=== PATIENT | female | born 1955 | race Caucasian/White ===

== ENCOUNTER 2022-07-10 15:12 | Inpatient (IN) | payer MEDICAID, OTHER ==
[~2022-07-10] VITALS: Ht 165.1 cm; Wt 63.4 kg
[2022-07-10 16:13] LABS: Hemoglobin 8.6 g/dL (12.2-16.2); Mean Corpuscular Hgb Conc. 29.7 g/dL (32.0-36.0)
[2022-07-10 16:16] LABS: Mean Corpuscular Hemoglobin 21.6 pg (28.0-32.0); Mean Corpuscular Volume 72.7 fL (80.0-100.0); Red Blood Cells 3.99 10^6/uL (4.0-5.20)
[2022-07-10 16:41] LABS: Albumin 2.8 g/dL (3.4-5.0); Calcium 8.3 mg/dL (8.5-10.1); Potassium 3.8 mmol/L (3.5-5.1)
[2022-07-10 16:44] LABS: BUN/Creatinine Ratio 34.8; Bilirubin, Total 0.4 mg/dL (0.2-1.0); Red Cell Distribution Width 20.4 % (11.8-14.3); Total Protein 8.2 g/dL (6.4-8.2)
[2022-07-10 16:45] LABS: Band Neutrophils % (manual) 0; Basophils % (manual) 0 (0.0-2.0); Blast Cells 0; Eosinophils % (manual) 0 (0-7); Metamyelocytes % 0; Myelocytes % 0; Promyelocytes % 0; Reactive Lymphocytes 0
[2022-07-10] MEDS ORDERED: VANCOMYCIN 1GM/250ML 250 ML IV ONE (17:15)
[2022-07-10] MEDS ORDERED: MORPHINE SULFATE 4 MG/ML SYR/VIAL IV ONE (17:15)
[2022-07-10] MEDS ORDERED: CEFEPIME 1GM/ 50ML 50 ML IV ONE (17:15)
[2022-07-10 17:31] LABS: Lymphocytes % (manual) 18 (10.0-50.0)
[2022-07-10 17:32] LABS: Monocytes % (manual) 10 (0-12)
[2022-07-10] MEDS ORDERED: DOCUSATE SOD 100 MG CAP PO PRN (19:15)
[2022-07-11] MEDS: ONDANSETRON HCL 4 MG/2 ML VIAL IV PRN ×2 (02:05→03:28)
[2022-07-11] MEDS: CLINDAMYCIN 600MG IV 50 ML IV SCH ×2 (02:05→06:31)
[2022-07-11] MEDS: HYDROmorphone HCL 2 MG/ML VL/or syr IV PRN ×2 (03:29→11:03)
[2022-07-11 06:06] LABS: Basophils # (auto) 0 10 ^3/uL (0-0.2); Eosinophils # (auto) 0.1 10 ^3/uL (0-0.8); Hemoglobin 7.7 g/dL (12.2-16.2); Monocytes # (auto) 0.9 10 ^3/uL (0-1.3); Nucleated Red Blood Cells % 0.1 %
[2022-07-11 06:08] LABS: Basophils % (auto) 0.5 % (0.0-2.0); Eosinophils % (auto) 1.7 % (0.0-7.0); Hematocrit 26.5 % (36.0-46.0); Lymphocytes # (auto) 1.6 10 ^3/uL (0.4-5.4); Lymphocytes % (auto) 22.2 % (10.0-50.0); Mean Corpuscular Hemoglobin 21.1 pg (28.0-32.0); Mean Corpuscular Hgb Conc. 29.1 g/dL (32.0-36.0); Mean Corpuscular Volume 72.5 fL (80.0-100.0); Monocytes % (auto) 12.5 % (0.0-12.0); Neutrophils # (auto) 4.5 10 ^3/uL (1.6-8.6); Neutrophils % (auto) 63.1 % (37.0-80.0); Red Blood Cells 3.65 10^6/uL (4.0-5.20); White Blood Cell 7.1 10^3/uL (4.4-10.8)
[2022-07-11 06:10] LABS: Red Cell Distribution Width 20.3 % (11.8-14.3)
[2022-07-11 06:25] LABS: Potassium 3.7 mmol/L (3.5-5.1)
[2022-07-11 06:29] LABS: Albumin 2.4 g/dL (3.4-5.0); BUN/Creatinine Ratio 24.1; Calcium 8.3 mg/dL (8.5-10.1)
[2022-07-11 06:32] LABS: Bilirubin, Total 0.4 mg/dL (0.2-1.0); Total Protein 7.5 g/dL (6.4-8.2)
[2022-07-11] MEDS ORDERED: ENOXAPARIN SOD 40 MG/0.4 ML SYRINGE SC SCH (10:00)
[2022-07-11] MEDS ORDERED: levoFLOXacin 500MG 100 ML IV SCH (10:00)
[2022-07-11] MEDS ORDERED: METHADONE HCL 10 MG TAB PO ONE (11:30)
[2022-07-11] MEDS ORDERED: VANCOMYCIN PER PHARMACY 0 MG IV SCH (11:30)
[2022-07-11] MEDS ORDERED: HYDROmorphone HCL 2 MG/ML VL/or syr IV PRN (11:30)
[2022-07-11] MEDS ORDERED: INFLUENZA QUAD 2022-2023 0.5 ML SYRG IM ONE (12:30)
[2022-07-11] MEDS ORDERED: PNEUMOCOCCAL VACC POLYS 25 MCG/0.5 ML VIAL IM ONE (12:30)
[2022-07-11 13:00] VITALS: BP 104/39
[2022-07-11] MEDS ORDERED: METH10T PO (14:39)
[2022-07-11 15:04] LABS: Urine Bacteria NONE SEEN /hpf (None Seen); Urine Blood Negative /uL (Negative); Urine Specific Gravity 1.023 (1.001-1.035); Urine WBC 1 /hpf (0 - 5)
[2022-07-11 15:18] LABS: Amphetamine Screen, Urine POSITIVE (NEGATIVE); Barbiturate Scree,Urine NEGATIVE (NEGATIVE); Benzodiazephine Screen, Urine NEGATIVE (NEGATIVE); Cannabinoid Screen, Urine NEGATIVE (NEGATIVE); Cocaine Screen, Urine NEGATIVE (NEGATIVE); Phencyclidine Screen, Urine NEGATIVE (NEGATIVE)
[2022-07-11 15:25] LABS: Opiate Scree,Urine POSITIVE (NEGATIVE)
[2022-07-11] MEDS: CEFEPIME 2 GM in SODIUM CHL 0.9% 50 ML IV SCH ×3 (16:28→23:58)
[2022-07-11] MEDS: VANCOMYCIN 1GM/250ML 250 ML IV SCH (16:29)
[2022-07-11 17:00] VITALS: BP 114/58
[2022-07-11 22:00] VITALS: BP 108/65
[2022-07-12] MEDS: VANCOMYCIN 1GM/250ML 250 ML IV SCH ×2 (04:17→17:19)
[2022-07-12 05:00] VITALS: BP 105/46
[2022-07-12 05:18] LABS: Basophils # (auto) 0 10 ^3/uL (0-0.2); Basophils % (auto) 0.4 % (0.0-2.0); Eosinophils # (auto) 0.1 10 ^3/uL (0-0.8); Hematocrit 27.9 % (36.0-46.0); Hemoglobin 8.1 g/dL (12.2-16.2); Lymphocytes # (auto) 1.4 10 ^3/uL (0.4-5.4); Mean Corpuscular Hemoglobin 21.4 pg (28.0-32.0); Mean Corpuscular Volume 73.6 fL (80.0-100.0); Monocytes # (auto) 0.8 10 ^3/uL (0-1.3); Monocytes % (auto) 11.6 % (0.0-12.0); Neutrophils # (auto) 4.8 10 ^3/uL (1.6-8.6); Red Blood Cells 3.79 10^6/uL (4.0-5.20); White Blood Cell 7.2 10^3/uL (4.4-10.8)
[2022-07-12 05:21] LABS: Red Cell Distribution Width 20.2 % (11.8-14.3)
[2022-07-12 05:24] LABS: INR 1.11 (0.9-1.15); Partial Thromboplastin Time 28.6 sec (24.6-33.4)
[2022-07-12 05:29] LABS: % Iron Saturation 3.7 % (15-50); BUN/Creatinine Ratio 18.5; Potassium 3.8 mmol/L (3.5-5.1)
[2022-07-12] MEDS: CEFEPIME 2 GM in SODIUM CHL 0.9% 50 ML IV SCH ×2 (06:52→14:00)
[2022-07-12 08:00] VITALS: BP 119/62
[2022-07-12] MEDS: METHADONE HCL 10 MG TAB PO SCH (09:37)
[2022-07-12] MEDS ORDERED: FERROUS SULFATE 325mg EC TAB PO ONE (11:15)
[2022-07-12] MEDS ORDERED: MORPHINE SULFATE INJ 2 MG/ml SYRG IV PRN (11:15)
[2022-07-12 12:00] VITALS: BP 107/52
[2022-07-12 17:00] VITALS: BP 111/49
[2022-07-12 22:00] VITALS: BP 125/64
[2022-07-12] MEDS: FERROUS SULFATE 325mg EC TAB PO SCH (22:46)
[2022-07-13] MEDS: VANCOMYCIN 1GM/250ML 250 ML IV SCH ×2 (04:23→17:32)
[2022-07-13] MEDS ORDERED: amLODIPine BESYLATE 5 MG TAB PO ONE (04:30)
[2022-07-13 05:00] VITALS: BP 142/56
[2022-07-13 07:36] LABS: Basophils # (auto) 0 10 ^3/uL (0-0.2); Basophils % (auto) 0.6 % (0.0-2.0); Eosinophils # (auto) 0.2 10 ^3/uL (0-0.8); Eosinophils % (auto) 3.7 % (0.0-7.0); Hematocrit 28.2 % (36.0-46.0); Hemoglobin 8.2 g/dL (12.2-16.2); Lymphocytes # (auto) 1.4 10 ^3/uL (0.4-5.4); Lymphocytes % (auto) 23.5 % (10.0-50.0); Mean Corpuscular Hemoglobin 21.4 pg (28.0-32.0); Mean Corpuscular Hgb Conc. 29.1 g/dL (32.0-36.0); Mean Corpuscular Volume 73.7 fL (80.0-100.0); Monocytes # (auto) 0.7 10 ^3/uL (0-1.3); Monocytes % (auto) 11.6 % (0.0-12.0); Neutrophils # (auto) 3.6 10 ^3/uL (1.6-8.6); Neutrophils % (auto) 60.6 % (37.0-80.0); Nucleated Red Blood Cells % 0.1 %; Red Blood Cells 3.83 10^6/uL (4.0-5.20); Red Cell Distribution Width 19.9 % (11.8-14.3); White Blood Cell 5.9 10^3/uL (4.4-10.8)
[2022-07-13 07:58] LABS: % Iron Saturation 26.7 % (15-50)
[2022-07-13] MEDS: CEFEPIME 2 GM in SODIUM CHL 0.9% 50 ML IV SCH ×3 (08:11→22:05)
[2022-07-13] MEDS: FERROUS SULFATE 325mg EC TAB PO SCH ×2 (08:11→18:04)
[2022-07-13 09:00] VITALS: BP 115/43
[2022-07-13] MEDS: METHADONE HCL 10 MG TAB PO SCH (09:33)
[2022-07-13] MEDS ORDERED: amLODIPine BESYLATE 5 MG TAB PO SCH (10:00)
[2022-07-13 13:00] VITALS: BP 108/34
[2022-07-13 17:21] VITALS: BP 109/41
[2022-07-13 22:00] VITALS: BP 128/56
[2022-07-14] MEDS: VANCOMYCIN 1GM/250ML 250 ML IV SCH ×2 (04:03→16:01)
[2022-07-14 05:00] VITALS: BP 117/51
[2022-07-14] MEDS: CEFEPIME 2 GM in SODIUM CHL 0.9% 50 ML IV SCH ×3 (06:36→21:38)
[2022-07-14 07:19] LABS: Potassium 4.1 mmol/L (3.5-5.1)
[2022-07-14 07:34] LABS: BUN/Creatinine Ratio 18.4; Bilirubin, Total 0.4 mg/dL (0.2-1.0); Total Protein 7.1 g/dL (6.4-8.2)
[2022-07-14] MEDS: FERROUS SULFATE 325mg EC TAB PO SCH ×2 (08:24→17:33)
[2022-07-14] MEDS: METHADONE HCL 10 MG TAB PO SCH (08:25)
[2022-07-14 09:00] VITALS: BP 119/48
[2022-07-14 09:37] LABS: Basophils # (auto) 0 10 ^3/uL (0-0.2); Basophils % (auto) 0.4 % (0.0-2.0); Eosinophils # (auto) 0.2 10 ^3/uL (0-0.8); Eosinophils % (auto) 2.6 % (0.0-7.0); Hematocrit 29.2 % (36.0-46.0); Hemoglobin 8.4 g/dL (12.2-16.2); Lymphocytes # (auto) 1.3 10 ^3/uL (0.4-5.4); Lymphocytes % (auto) 20.9 % (10.0-50.0); Mean Corpuscular Hemoglobin 20.9 pg (28.0-32.0); Mean Corpuscular Hgb Conc. 28.9 g/dL (32.0-36.0); Mean Corpuscular Volume 72.5 fL (80.0-100.0); Monocytes # (auto) 0.5 10 ^3/uL (0-1.3); Monocytes % (auto) 8.6 % (0.0-12.0); Neutrophils # (auto) 4.1 10 ^3/uL (1.6-8.6); Neutrophils % (auto) 67.5 % (37.0-80.0); Nucleated Red Blood Cells % 0.1 %; Red Blood Cells 4.03 10^6/uL (4.0-5.20); Red Cell Distribution Width 20.3 % (11.8-14.3); White Blood Cell 6.1 10^3/uL (4.4-10.8)
[2022-07-14] MEDS ORDERED: ALPRAZolam 0.5 MG TAB PO PRN (11:00)
[2022-07-14 13:00] VITALS: BP 117/41
[2022-07-14 17:00] VITALS: BP 107/30
[2022-07-14] MEDS: HYDROcodone-ACET 5/325MG TAB PO PRN (20:18)
[2022-07-14 22:00] VITALS: BP 106/38
[2022-07-15] MEDS: VANCOMYCIN 1GM/250ML 250 ML IV SCH (04:02)
[2022-07-15 04:57] VITALS: BP 112/44
[2022-07-15 05:37] LABS: Basophils # (auto) 0 10 ^3/uL (0-0.2); Basophils % (auto) 0.7 % (0.0-2.0); Eosinophils # (auto) 0.4 10 ^3/uL (0-0.8); Eosinophils % (auto) 6.2 % (0.0-7.0); Hematocrit 28.2 % (36.0-46.0); Hemoglobin 8.1 g/dL (12.2-16.2); Lymphocytes # (auto) 2.2 10 ^3/uL (0.4-5.4); Lymphocytes % (auto) 32.7 % (10.0-50.0); Mean Corpuscular Hemoglobin 21.2 pg (28.0-32.0); Mean Corpuscular Hgb Conc. 28.8 g/dL (32.0-36.0); Mean Corpuscular Volume 73.5 fL (80.0-100.0); Monocytes # (auto) 0.9 10 ^3/uL (0-1.3); Neutrophils # (auto) 3.1 10 ^3/uL (1.6-8.6); Neutrophils % (auto) 46.4 % (37.0-80.0); Nucleated Red Blood Cells % 0.2 %; Red Blood Cells 3.83 10^6/uL (4.0-5.20); Red Cell Distribution Width 20.3 % (11.8-14.3); White Blood Cell 6.6 10^3/uL (4.4-10.8)
[2022-07-15 05:42] LABS: Albumin 1.9 g/dL (3.4-5.0); BUN/Creatinine Ratio 17.5; Calcium 8.2 mg/dL (8.5-10.1)
[2022-07-15 05:45] LABS: Bilirubin, Total 0.3 mg/dL (0.2-1.0); Total Protein 6.9 g/dL (6.4-8.2)
[2022-07-15] MEDS: CEFEPIME 2 GM in SODIUM CHL 0.9% 50 ML IV SCH (05:48)
[2022-07-15] MEDS: HYDROcodone-ACET 5/325MG TAB PO PRN ×2 (06:52→11:50)
[2022-07-15] MEDS: METHADONE HCL 10 MG TAB PO SCH (08:26)
[2022-07-15] MEDS: FERROUS SULFATE 325mg EC TAB PO SCH (08:26)
[2022-07-15 09:00] VITALS: BP 109/47
[2022-07-15] MEDS ORDERED: HYDR-4902 PO ×2 (10:54→11:40)
[2022-07-15] MEDS ORDERED: BACDST PO (11:03)
[2022-07-15] MEDS ORDERED: CEPH-510 PO (11:03)
[2022-07-15 11:51] VITALS: BP 109/47
[2022-07-15 13:00] VITALS: BP 110/50
[2022-07-15] MEDS ORDERED: cefTAZidime 2GM/NS 50 ML IV SCH (14:00)
== END 2022-07-15 14:30 | disposition home health service (06) | DRG 380 ==
LOC: ER 15:12 → OVERFLOW 19:23 → CENTRAL 07-11 08:00
PROVIDERS: ADMIT Nurse Practitioner Family; ATTEND Internal Medicine
DX: L97.919 Non-pressure chronic ulcer of unspecified part of right lower leg with unspecified severity (principal); U07.1 COVID-19; E43 Unspecified severe protein-calorie malnutrition; S81.801A Unspecified open wound, right lower leg, initial encounter; F11.10 Opioid abuse, uncomplicated; D50.9 Iron deficiency anemia, unspecified; L03.115 Cellulitis of right lower limb; B96.20 Unspecified Escherichia coli [E. coli] as the cause of diseases classified elsewhere; F19.10 Other psychoactive substance abuse, uncomplicated; I73.9 Peripheral vascular disease, unspecified; L97.929 Non-pressure chronic ulcer of unspecified part of left lower leg with unspecified severity; B95.62 Methicillin resistant Staphylococcus aureus infection as the cause of diseases classified elsewhere; G89.29 Other chronic pain; S81.802A Unspecified open wound, left lower leg, initial encounter; X58.XXXA Exposure to other specified factors, initial encounter; Y93.89 Activity, other specified; Z68.1 Body mass index [BMI] 19.9 or less, adult; Z88.0 Allergy status to penicillin; Y92.89 Other specified places as the place of occurrence of the external cause; Y99.8 Other external cause status
CPT/HCPCS: 36415; 73590; 80048; 80053; 80202; 80307; 81001; 82728; 83540; 83550; 85007; 85025; 85027; 85610; 85730; 87077; 87186; 87205; 87426; 90686; 93926; 93971; 96365; 96367; 96375; G0378; J0713; J1956; J2405; J3490